=== PATIENT | male | born 1975 | race Caucasian/White ===

== ENCOUNTER 2022-10-21 19:03 | Emergency (ER) | payer BC ==
[~2022-10-21] VITALS: Ht 180.3 cm; Wt 78.2 kg
[2022-10-21 19:39] VITALS: BP 173/105
[2022-10-21] MEDS ORDERED: ALBU6.7H14 INH (20:19)
--- NOTE | 2022-10-21 20:23 | NUR ---
I.S. EDUCATION GIVEN PT UNDERSTOOD WITH RETURN DEMO. CLINIC LIST GIVEN
== END 2022-10-21 20:27 | disposition home or self-care (01) ==
LOC: ER 19:04
DX: S22.31XG Fracture of one rib, right side, subsequent encounter for fracture with delayed healing (principal); X58.XXXD Exposure to other specified factors, subsequent encounter; G89.29 Other chronic pain; M54.9 Dorsalgia, unspecified
CPT/HCPCS: 71045; 99283